=== PATIENT | female | born 1995 | race Caucasian/White ===

== ENCOUNTER 2017-03-22 06:39 | Inpatient (IN) | payer OTHER ==
[~2017-03-22] VITALS: Ht 157.5 cm; Wt 70.3 kg
[2017-03-22] MEDS ORDERED: Sodium Chloride LOK Flush 10 mL Syringe IVFLUSH PRN (08:00)
[2017-03-22] MEDS ORDERED: Carboprost 250 mCg/mL Inj IM PRN (08:00)
[2017-03-22] MEDS ORDERED: Methylergonovine 0.2 mg/mL Inj IM PRN (08:00)
[2017-03-22] MEDS ORDERED: Hemorrhage Kit, Post Partum XX ONE (08:00)
[2017-03-22] MEDS ORDERED: Oxytocin 30 Units/500 mL LR 30 UNITS in IV Premix 1 EACH IV PRN (08:00)
[2017-03-22] MEDS ORDERED: Oxytocin 10 Unit/mL Inj IM PRN (08:00)
[2017-03-22 09:20] LABS: Mean Corpuscular Hemoglobin 24.3 pg (27.0-35.0); Mean Corpuscular Volume 78.9 fL (81-100)
[2017-03-22] MEDS: Lactated Ringer's 1,000 ML IV PRN (21:03)
[2017-03-23 07:24] LABS: Mean Corpuscular Hemoglobin 24.5 pg (27.0-35.0); Mean Corpuscular Volume 79.5 fL (81-100)
--- NOTE | 2017-03-23 07:42 | PROG NOTE ---
[address] [address] PROGRESS NOTE PATIENT: VERENICE DESIR V : 1995 MR#: [id number] ADMIT: 03/22/2017 JOB ID: [id number] DATE: 03/23/2017 SUBJECTIVE: The patient was admitted yesterday with rupture of membranes at 39+ weeks gestation without active contractions. She wanted take a nonmedical approach and was observed over the course of most of the day yesterday. She also had some initial elevated blood pressures and had a CBC that was essentially normal. Creatinine of 0.53, uric acid 5.8, AST and ALT were normal, and a protein to creatinine ratio of 5.61. Over the course of the day, she did not really have much contractions. She was feeling okay and, in the evening, she was started on Pitocin per protocol. Overnight she says that her contractions were from about 2-4/10 in intensity. She had a mild headache that was treated with Tylenol and has gotten better. She is not currently having headache or visual changes. No abdominal pain. The contractions have completely gone away since the Pitocin was turned off a few hours ago after having reached 20 with no active contraction pattern. Vital signs have been in the 140 systolic overnight. EXAM: The patient is alert, nontoxic appearing. Abdomen is obviously gravid. Cervical exam is essentially unchanged at 4 cm, 70% effaced, very posterior moderate consistency. heart tones 140 with moderate variability and a few accelerations. No decelerations. Category 1 tracing. [place] shows no active contraction pattern. ASSESSMENT: 1. A 39 week, 1 para 0, now approximately 24 hours ruptured, at term. 2. The patient desires to avoid medicine. PLANS: We attempted to place a Carrizales bulb to see if we could to mechanical ripening due to the patient's desire to avoid medication. This was not able to be placed, and we will now do Cytotec for potentially a few doses and then repeat trial of Pitocin afterwards. We discussed the potential risks including chorioamnionitis and potential for a . I would like to recheck the PIH labs with some elevated blood pressures, but I am not immediately going to start medications for PIH due, in part, to the patient preference, but will need to monitor blood pressures closely.
[2017-03-23] MEDS: Misoprostol 25 mCg/0.25 Tablet VAGINAL SCH ×2 (08:28→13:25)
--- NOTE | 2017-03-23 20:42 | PROG NOTE ---
[address] [address] PROGRESS NOTE PATIENT: VERENICE DESIR V : 1995 MR#: [id number] ADMIT: 03/22/2017 JOB ID: [id number] DATE: SUBJECTIVE: The patient has been feeling well. She rates contractions about 1/10. Not currently having any fevers, chills. No headache. No other symptoms. OBJECTIVE: Vital signs are stable except for blood pressures which are noted to be in the 130-150 range systolic. No vaginal exam done at this time. heart tones 140 with moderate variability, some accelerations, no decelerations. ASSESSMENT: 1. Spontaneous rupture of membranes at term in a primiparous patient. 2. Elevated blood pressures. PLAN: We are going to continue the second dose of Cytotec which was recently placed. She has already tried and failed Pitocin one time. Plan to retry that again this evening after the second dose of Cytotec complete. Continue to monitor blood pressures.
[2017-03-24] MEDS ORDERED: fentaNYL 2 mCg/mL-Bupivicaine 0.125% 100 mL Premix EPIDURAL ONE (00:32)
[2017-03-24] MEDS ORDERED: Lactated Ringer's 500 ML IV ONE (00:37)
[2017-03-24] MEDS ORDERED: Lactated Ringer's 1,000 ML IV SCH (00:37)
--- NOTE | 2017-03-24 00:39 | PCM.HPANE ---
Patient Data Surgeon Admitting Provider:Aníbal Garrett MD Attending Provider:Aníbal Garrett MD Primary Care Physician:Aníbal Garrett MD Other Provider:Beka Francis Anesthesia Reason for Visit Term Labor TERM LABOR Ht/WT & BMI Body Mass Index Allergies Coded Allergies: No Known Allergies (Unverified , 03/22/17) Past Anesthesia History Anesthesia History: Denies:: Abnormal Airway, Anesthesia Reactions, Difficult Intubation, Fam Anesthesia Reaction, Fam Malignant Hypertherm, Malignant Hyperthermia Diabetes History Hx Diabetes?: No Medications Hypertension Medication: No Home Meds Incl Beta Ricardo: No History History of ENT Problems?: No HEENT History: Denies:: Abnormal Airway Cataracts Difficult Intubation Dysphagia Glaucoma Hearing Problem Sinus Problem TMJ Denture Type: None Teeth Condition: Within Normal Limits Hx of Heart Problems?: No Cardiovascular History: Denies:: AICD Abdominal Aortic Aneurism Atrial Fibrillation Cardiac Surgery Chest Pain Congestive Heart Failure Coronary Artery Disease Edema Heart Murmur Hypertension Irregular Heartbeat Pacemaker Peripheral Vascular Rheumatic Fever Thrombophlebitis Valvular Heart Disease Hx of Respiratory Problem?: No Respiratory History: Denies:: Asthma COPD Chest Surgery Cough Dyspnea Emphysema Hemoptysis Oxygen Administration Pneumonia Pulmonary Embolism Tuberculosis Use of C-PAP Machine Use of Inhalers / NEBS Hx Neurologic Problems?: No Hx of GI Problems?: Yes Gastrointestinal History: Positive for:: Heartburn Hx of Problems?: No Female Hx: Positive for:: Currently Hx Musculoskeletal Problems?: No Hx Surgeries?: No Smoking Status: Never Smoker Stop/Bang Treated for Sleep Apnea?: No Do You Have a CPAP Machine?: No SARAH Risk Assessment: Low Risk, <3 Yes Risk Assessment Category Category 1A: Patient has history of documented sleep apnea, and HAS NOT received any narcotic, sedative or anesthesia administration during this stay. Category 1B: Patient has history of documented sleep apnea, and HAS received any narcotic , sedative or anesthesia administration during this stay Category 2: Patient has SUSPECTED Obstructive Sleep Apnea, and HAS received any narcotic , sedative or anesthesia administration during this stay. Category 3: Patient has SUSPECTED Obstructive Sleep Apnea and HAS NOT received narcotic, sedative or anesthesia administration during this stay. Category 4: Outpatient in Procedural Areas with known sleep apnea or who screen positive for High Risk via the STOP/BANG questionnaire. Exam Exam General Appearance: Oriented X3 HEENT/AIRWAY: MP 2 Lungs: Normal Air Movement Heart: Regular Rate/Rhythm Meds/Labs/Diagnostics Admission Meds Current Medications Misoprostol (Cytotec) 25 mcg Q4H VAGINAL Last administered on 03/23/17t 13:25; Start 03/23/17 at 07:05 Labs Test 03/22/17 08:20 03/22/17 11:40 03/23/17 07:15 03/23/17 08:15 Hematology Comments Hold Urine Received (Received) White Blood Count 10.6th/mm3 (3.8-10.1) Red Blood Count 4.00mil/mm3 (3.90-5.20) Hemoglobin 9.8g/dL (12.0-15.6) Hematocrit 31.8% (35.0-46.0) Mean Corpuscular Volume 79.5fL (81-100) Mean Corpuscular Hemoglobin 24.5pg (27.0-35.0) Mean Corpuscular Hemoglobin Concent 30.8% (32.0-37.0) Red Cell Distribution Width 14.7% (12.3-15.4) Platelet Count 255bil/L (150-400) Blood Urea Nitrogen 7mg/dL (6-20) Creatinine 0.59mg/dL (0.57-1.00) Uric Acid 5.9mg/dL (2.6-7.2) Aspartate Amino Transf (AST/SGOT) 14U/L (0-50) Alanine Aminotransferase (ALT/SGPT) < 5U/L (0-32) Urine Random Creatinine 112mg/dL (16-392) Urine Random Total Protein 511mg/dL (0-15) Urine Protein/Creatinine Ratio 4.56 (0-200) Plan Impression Patient chart reviewed, patient interviewed and anesthestic plan with risks, benefits, and alternatives discussed, and informed consent obtained. ASA Physical Status: ASA2 Mod Systemic Disease Anesthetic Plan: Epidural Bene/Risks/Altern/Consents: Yes HP Complete Prior to Induction: Yes Tim Estrada MD Mar 24, 2017 00:39
[2017-03-24] MEDS ORDERED: fentaNYL 2 mCg/mL-Bupiv 0.125% 100 ML EPIDURAL SCH (00:40)
[2017-03-24] MEDS ORDERED: Phenylephrine/NS-PF 100 mCg/mL 5 mL Syringe IVPUSH PRN (00:40)
[2017-03-24] MEDS ORDERED: EPHEDrine Sulfate 50 mg/mL Inj IVPUSH PRN (00:40)
[2017-03-24] MEDS ORDERED: Atropine 1 mg/10 mL (Code) Syringe IVPUSH PRN (00:40)
[2017-03-24] MEDS ORDERED: Ondansetron 2 mg/mL 2 mL Inj IVPUSH PRN (00:40)
[2017-03-24] MEDS: Lactated Ringer's 1,000 ML IV PRN (02:07)
--- NOTE | 2017-03-24 02:32 | PROG NOTE ---
[address] [address] PROGRESS NOTE PATIENT: VERENICE DESIR V : 1995 MR#: [id number] ADMIT: 03/22/2017 JOB ID: [id number] DATE: SUBJECTIVE: Patient has been feeling better. She had an epidural placed and that seems to be generally working, maybe a little bit less on the left than on the right. She had requested that Pitocin be turned down prior to the epidural and so she is currently at 4 milliunits. The nurse had done a check and a second check by the charge nurse, and there was a question of a bulging bag. She had been admitted with vaginal bleeding and was thought to have been ruptured, and so she has been doing an induction over the last several days under that suspicion. PHYSICAL EXAMINATION: Blood pressures are still mildly elevated, see the electronic record. Cervix is about 6-7 cm, 90% effaced, -1 station with contractions. There is a clear amniotic bag which is ruptured with clear fluid. ASSESSMENT: This is a 21-year-old, G1, P0, admitted with rupture of membranes at 39 weeks, and had been thought to be about 42 hours status post rupture, but at this point I think there is a chance that we have effectively done an induction on her. She has had slow progress up to this point, but I am going to give her an hour or two to see if rupture of membranes improves her progress. Also, restart Pitocin augmentation and follow clinically.
--- NOTE | 2017-03-24 04:43 | PCM.PNOBIP ---
Subjective Date of Service Mar 24, 2017 Delivery plan: Spontaneous Vaginal Delivery Subjective No complaints. Pain Management: Epidural Labs Laboratory Tests 03/22/17 08:20: Hematology Comments 03/23/17 07:15: White Blood Count 10.6, Red Blood Count 4.00, Hemoglobin 9.8, Hematocrit 31.8, Mean Corpuscular Volume 79.5, Mean Corpuscular Hemoglobin 24.5, Mean Corpuscular Hemoglobin Concent 30.8, Red Cell Distribution Width 14.7, Platelet Count 255 Exam Vital Signs Vital Signs Contraction frequency in minutes: MVUs: Vital Signs: VS reviewed, concerns are (elevated BPs in the 140s.) Heart Tracings Heart Tones Baseline bpm Heart Rate Variability: Moderate Heart Rate Accelleration: Present Heart Rate Deceleration: Present (about half hour ago) Tocometry/IUPC Contraction frequency in minutes: MVUs: Sterile Vaginal Exam Cervical Dilation: 10 cms Station: +1 OB Intrapartum Assessment/Plan Intrapartum plan: Start expulsive efforts (complete, will try pushing, continue to monitor heart tones. ) Aníbal Garrett MD Mar 24, 2017 04:43
[2017-03-24] MEDS ORDERED: Sodium Chloride LOK Flush 10 mL Syringe IVFLUSH SCH (08:30)
--- NOTE | 2017-03-24 08:36 | PCM.PNOBIP ---
Subjective Date of Service Mar 24, 2017 Delivery plan: Spontaneous Vaginal Delivery Subjective Still feeling OK. Has taken a few breaks for laboring down in semi-fowlers in the past couple hours. No complaints. Pain Management: Epidural Labs Laboratory Tests 03/22/17 08:20: Hematology Comments 03/23/17 07:15: White Blood Count 10.6, Red Blood Count 4.00, Hemoglobin 9.8, Hematocrit 31.8, Mean Corpuscular Volume 79.5, Mean Corpuscular Hemoglobin 24.5, Mean Corpuscular Hemoglobin Concent 30.8, Red Cell Distribution Width 14.7, Platelet Count 255 Exam Vital Signs Vital Signs Contraction frequency in minutes: MVUs: Vital Signs: VS reviewed, stable Heart Tracings Heart Tones Baseline bpm Heart Rate Variability: Moderate Heart Rate Accelleration: Present Heart Rate Deceleration: Present (to 90s with contractions, returns to 120 baseline) Tocometry/IUPC Contraction frequency in minutes: MVUs: Sterile Vaginal Exam Cervical Dilation: 10 cms Station: +1 OB Intrapartum Assessment/Plan Intrapartum plan: Continue expected management (Has been on/off pitocin, has pushed on alternate contractions, also pushed regularly and several laboring down breaks. Although ~4 hours since initial expulsive efforts, mother still seems to be pushing well and more recently progressing. ) Aníbal Garrett MD Mar 24, 2017 08:36
[2017-03-24] MEDS ORDERED: HYDROcodone-APAP 5-325 mg Tablet PO PRN (11:20)
[2017-03-24] MEDS ORDERED: LANOlin HPA 7 Gm Ointment TOPICAL PRN (11:20)
[2017-03-24] MEDS ORDERED: Witch Hazel-Glycerin Pads TOPICAL PRN (11:20)
[2017-03-24] MEDS ORDERED: Oxytocin 30 Units/500 mL LR 30 UNITS in IV Premix 1 EACH IV PRN (11:20)
[2017-03-24] MEDS ORDERED: Benzocaine (Dermoplast) 20% 60 Gm Spray TOPICAL PRN (11:20)
[2017-03-24] MEDS ORDERED: Oxytocin 10 Unit/mL Inj IM PRN (11:20)
[2017-03-24] MEDS ORDERED: Methylergonovine 0.2 mg/mL Inj IM PRN (11:20)
[2017-03-24] MEDS ORDERED: Hemorrhage Kit, Post Partum XX ONE (11:20)
[2017-03-24] MEDS ORDERED: Carboprost 250 mCg/mL Inj IM PRN (11:20)
--- NOTE | 2017-03-24 11:50 | OP ---
[address] [address] OPERATIVE REPORT PATIENT: VERENICE DESIR V : 1995 MR#: [id number] ADMIT: 03/22/2017 JOB ID: [id number] DATE OF SURGERY: 03/24/2017 PREOPERATIVE DIAGNOSIS(ES): POSTOPERATIVE DIAGNOSIS(ES): PROCEDURE: Normal spontaneous vaginal delivery over a second-degree perineal laceration. SURGEON: Aníbal Garrett MD ANESTHESIA: Epidural anesthesia. ESTIMATED BLOOD LOSS: 300 cc. APGARS: Were 3 and 8 at one and five minutes, respectively, with a brief positive pressure ventilation for a few breaths at . LACERATIONS: There is a second-degree perineal laceration repaired with 3-0 Vicryl without complication. No episiotomy was performed. UTERUS: Spontaneous delivery of the placenta, no manual exploration of the uterus. DESCRIPTION OF PROCEDURE: The patient is a 21-year-old, , who was admitted about 52 hours ago with thought of rupture of membranes from the ROM plus test. She was monitored initially for approximately 12 hours and then was augmented with Pitocin over the 1st night with no interval cervical change. She had Cytotec for two doses on the 2nd day, with some interval change and then Pitocin augmentation with arrest of dilation at approximately 6-7 cm. At that time, amniotic fluid bag was intact and ruptured, and she progressed over the next several hours. She started 2nd stage of labor at approximately 4:45, and then pushed for a little over an hour. She subsequently took several breaks and alternated between pushing and laboring down for the next several hours. I was with the patient from approximately 9:30 continuously until delivery. During delivery, there were decelerations with contractions that would return to baseline. There were accelerations and moderate variability. In the final contractions, the head was on the perineum for a relatively prolonged time. Cord was too tight to reduce and was around the neck. It was cross cut and the body was then delivered. The baby was briefly placed on the mother's abdomen before transferring to the warmer for resuscitation. About 2-3 minutes later, the baby was active and doing well. Mother had the laceration repaired without difficulty. Counts were confirmed and correct, and currently she and the baby are doing well in recovery. BERYL
[2017-03-24] MEDS ORDERED: Lidocaine 2% 5 mL Urojet Topical Jelly Syringe ONE (14:42)
[2017-03-24] MEDS: Lactated Ringer's 1,000 ML IV SCH ×2 (14:57→20:57)
[2017-03-24 16:09] LABS: Mean Corpuscular Hemoglobin 24.2 pg (27.0-35.0); Mean Corpuscular Volume 80.8 fL (81-100)
[2017-03-25 00:47] LABS: Mean Corpuscular Hemoglobin 25.3 pg (27.0-35.0); Mean Corpuscular Volume 80.9 fL (81-100)
--- NOTE | 2017-03-25 01:28 | PCM.ANEP1 ---
Post Anesthesia PACU Phase 1 Assessment Anesthetic Administered: Epidural Level of Alertness: Awake, talking BAIN's with Equal Strength: Yes Pain: No Pain Scale Score: 4 Nausea or Vomiting: No CV Function & Hydration Stable: No Airway Device: Oxygen Delivery: Room Air Lungs: Clear to Auscultation Dermatome Level: Full Sensation PACU Phase 2 Assessment Complications: No Follow up Care: N/A Patient Instructions Provided: N/A Oren Combs MD Mar 25, 2017 01:28
[2017-03-25] MEDS ORDERED: 0.9% Sodium Chloride 0 ML ONE (01:32)
[2017-03-25] MEDS ORDERED: diphenhydrAMINE 25 mg Capsule PO ONE (02:20)
--- NOTE | 2017-03-25 02:48 | PROG NOTE ---
[address] [address] PROGRESS NOTE PATIENT: VERENICE DESIR V : 1995 MR#: [id number] ADMIT: 03/22/2017 JOB ID: [id number] DATE: SUBJECTIVE: The patient is feeling tired and she has been feeling lightheaded and has need to use a wheelchair to get back from the bathroom. She has been having episodic amounts of blood loss, at about 500 or 600 cc of blood loss in the early afternoon. At that point, she had a hematocrit that was 24 compared to a pre delivery hematocrit of 31.8. She seemed to not be having further bleeding, but over the course of the next 8 hours, she had a few more episodes of some clotting and uncertainty about total amount. She had repeat blood draw about two hours ago that showed a white blood cell count of 23.1, a hemoglobin of 6.1 and a hematocrit of 19.5 with a platelet count of 248. She and her have a number of questions about pros and cons of blood transfusion which was discussed in depth for approximately 20 minutes. OBJECTIVE: The patient has been tachycardic with heart rates in the 110s, blood pressures have still been in the normal range. The patient is alert. She is pale, but otherwise nontoxic-appearing. Normal psych exam. ASSESSMENT: A G-1, now P-1 status post normal vaginal delivery, with a very prolonged second stage of labor with some resting periods, but a total time of six hours, who is now having intermittent hemorrhages. She may still be actively bleeding. We discussed this as a complication of her prolonged second stage of labor. I am recommending two units of blood. We had a long, careful discussion of risks including fever and chills, allergic reaction and a small non-zero risk of transmission of infectious disease such as hepatitis. I think benefits of transfusion outweigh the risks and I am not recommending any other approach at this point. They are agreeable after discussion. We will transfuse 2 units and check a post transfusion hematocrit. I will not be discharging the patient today so that we can continue to monitor. At this point, I do not feel that she actively needs other hemorrhage treatment or that she is immediately at risk for hysterectomy, but we need to monitor blood loss until it has started to stabilize. MTDD
[2017-03-25] MEDS: Lactated Ringer's 1,000 ML IV SCH ×3 (03:18→19:18)
[2017-03-25] MEDS ORDERED: 0.9% Sodium Chloride 250 ML ONE (04:15)
[2017-03-25 08:50] LABS: Mean Corpuscular Hemoglobin 26.5 pg (27.0-35.0)
--- NOTE | 2017-03-25 18:13 | PROG NOTE ---
[address] [address] PROGRESS NOTE PATIENT: VERENICE DESIR V : 1995 MR#: [id number] ADMIT: 03/22/2017 JOB ID: [id number] DATE: 03/25/2017 SUBJECTIVE: Patient is still feeling fatigued but is not feeling lightheaded or racing heart. She has not yet gotten up to walk but has been in the bathroom just a few minutes. She had a Carrizales catheter pulled out a couple of hours ago. She does not feel that she is having any heavy lochia but she has not really been checking. She has still been having a lot of swelling on the labia but feels that maybe swelling there and on her legs is better than it was this morning. No shortness of breath. No new complaints. She had RhoGAM during but earlier today there were issues with her agreeing with RhoGAM. She has not had RhoGAM yet today. PHYSICAL EXAMINATION: The patient has more pink in her cheeks and looks better than she did earlier this morning. Legs have bilateral symmetric swelling that seems relatively unchanged. There is no pelvic exam at this point right now. ASSESSMENT: 1. A 21-year-old with some elevated blood pressures and hemorrhage. Now status post 2 units of blood with a hematocrit this morning of 25. 2. Rh negative status . PLAN: 1. Recheck hematocrit tomorrow morning at five. She is not actively having any signs of heavy bleeding and, assuming hematocrit stable and signs of anemia are stable, could probably discharge home tomorrow. 2. Discussion of the role of RhoGAM and preventing hydrops. The patient after discussion is agreeable with doing RhoGAM. She would like to do it tomorrow after she has had a chance to talk but promises that she will do it.
[2017-03-26] MEDS: Lactated Ringer's 1,000 ML IV SCH ×2 (03:18→11:18)
[2017-03-26 06:54] LABS: Mean Corpuscular Hemoglobin 26.4 pg (27.0-35.0); Mean Corpuscular Volume 83.1 fL (81-100)
--- NOTE | 2017-03-26 08:02 | PCM.DC.OB ---
Obstetrical Discharge Summary Date of Service Mar 26, 2017 Date of hospital admission Mar 22, 2017 at 07:47 Date of Discharge: Mar 26, 2017 Providers Admitting Physician: Aníbal Garrett MD Primary Care Physician: Aníbal Garrett MD Attending Physician: Aníbal Garrett MD Problems: (1) Qualifiers: Weeks of gestation: 39 weeks Qualified Code: Z3A.39 - 39 weeks gestation of Plan: status post normal spontaneous vaginal delivery. Status: Resolved ICD Code: Z33.1 (2) hemorrhage, delivered Plan: prolonged second stage of labor, hemorrhage with hematocrit dropping to 19, 2 units of blood transfused, hematocrit stable for more than 20 hours at 25. Now asymptomatic. Status: Acute ICD Code: O72.1 (3) induced hypertension, antepartum Plan: this was monitored, most recent blood pressure of 130 systolic. Patient did not want medical managment. Status: Acute ICD Code: O13.9 (4) Rh negative status during Plan: patient agreed to do RhoGAM but initially there was refusal. Status: Acute ICD Code: O09.899 Invasive procedures normal spontaneous vaginal delivery over a second-degree perineal laceration Date of Procedure: Mar 24, 2017 Brief History and Physical: patient was admitted at 39 weeks with some mild vaginal bleeding and suspicion for rupture of membrane based on ROM plus testing. Her care was generally unremarkable except for refusal of immunizations. Past medical history and surgical history unremarkable. Exam on admission showed cervical dilation of 3 cm. labs were reassuring except for Rh- status. Hospital Course: Patient was admitted and initially monitored because she refused to do Pitocin augmentation. After approximately 12 hours of monitoring without signs of spontaneous labor she was started on Pitocin and this was increased per protocol over the course of the night. There was no cervical changes and dilation hovered around 4 cm. The patient had 2 doses of Cytotec with cervical change to 5 cm and then Pitocin was restarted. Amniotic sac was discovered to be intact was ruptured with clear fluids. Patient progressed normally through the remainder of the first stage of labor. She had a prolonged second stage of labor, initially with ineffective pushing. She had several sessions of laboring down. Total start to finish time of 6 hours. Steady progress in the last hour. There was reassuring monitoring during labor and second stage of labor, the head stayed on the perineum and was delivered slowly and initial Apgars were 3 and then 8. At one and 5 minutes. After delivery she had usual Pitocin but had significant vaginal bleeding as an episode. No continuous bleeding. Hematocrit dropped to 24, she had several other episodes and began to feel lightheaded and have tachycardia. Hematocrit had dropped to 19. She and her significant other and initially refused blood transfusion but after discussion agreed to 2 units of transfusion. Post transfusion hematocrit of 25. On the day discharge hematocrit is unchanged. Uncertain about contraception. She is breast-feeding, there was some initial difficulties. She had done RhoGAM during but initially she and her significant other refused to do RhoGAM. After discussion she has agreed to do it. She wanted to defer it until today Discharge Medications: home ibuprofen and vitamins. Discharge Diet: No restrictions Discharge Activity-General: Pelvic Rest for 6 weeks, Pelvic Rest, Try not to overdue, Be up and about, Balance rest and activity, Activity as pain allows, Activity as energy allows Aníbal Garrett MD Mar 26, 2017 08:00
--- NOTE | 2017-03-26 08:06 | PCM.DIOB ---
Obstetrical Disch Instruction Dates of Hospitalization Date of Hospital Admission Mar 22, 2017 at 07:47 Providers Admitting Physician: Aníbal Garrett MD Primary Care Physician: Aníbal Garrett MD Attending Physician: Aníbal Garrett MD Discharge Diagnosis Problems: (1) Qualifiers: Weeks of gestation: 39 weeks Qualified Code: Z3A.39 - 39 weeks gestation of Status: Resolved ICD Code: Z33.1 (2) hemorrhage, delivered Status: Acute ICD Code: O72.1 (3) induced hypertension, antepartum Status: Acute ICD Code: O13.9 (4) Rh negative status during Status: Acute ICD Code: O09.899 Diet Discharge Diet: No restrictions Activity Discharge Activity-General: Pelvic Rest for 6 weeks, Try not to overdue, Be up and about, Balance rest and activity, Activity as pain allows, Activity as energy allows Dressing and Incisional Care Hygiene: May shower, Dermoplast spray Follow Up Plan Follow-up appointment: Weeks (6) Call your provider for: Fever or Chills, Shortness of breath, Heavy vaginal bleeding, Heavy bleeding, Epigastric pain, Excessive constipation, Vaginal discomfort, Red painful breasts Aníbal Garrett MD Mar 26, 2017 08:06
--- NOTE | 2017-03-26 10:28 | NUR ---
received SW referral. LVM for [employer].
--- NOTE | 2017-03-26 11:17 | NUR ---
Social Work Note D/A: SPORTS PHOTOGRAPHER consult was ordered due to family concerns regarding [facility]OB's refusal of medical treatment for BB. SPORTS PHOTOGRAPHER spoke with credit associate Krystal who indicated that FBC MD requested consultation because the lack of treatment that was refused by [facility] and Pt places BB at substantial risk. P: SPORTS PHOTOGRAPHER is currently finishing up another case in the ED. SPORTS PHOTOGRAPHER conferred with credit associate Liz and the decision was made that SPORTS PHOTOGRAPHER would meet with Pt and FOB once that case was resolved, approximately 45 minutes from now. CAMRYN Jimenez, AAC
[2017-03-26 12:39] VITALS: BP 138/81; PULSE 94; RESP 18
--- NOTE | 2017-03-26 15:07 | NUR ---
Social Work Note: Initial Assessment D/A: Pt is a 21 year old female who gave to BB on 03/24/2017. Pt and FOB, Khang Ellis, declined vitamin K injection for BB. Various RN and MD staff explained the importance of the injection to guard against brain bleeds and BB's high risk status for such a complication. Pt and FOB refused each time. SHEEP STICKER spoke with Pt regarding the importance of the Vitamin K injection and Pt explained that she and FOB had purchased vitamin K drops that they planned to administer to BB orally upon discharge home. Pt explained that she and FOB had decided to decline the injection after speaking with several friends and family who told them that it wasn't worth it. Pt reported that she currently lives with FOB in [facility] and plans to return to this home upon discharge. Pt indicated that she has everything that she will need to properly care for BB at home including a crib and a car seat. Pt explained that she is not enrolled in any social service technician because she doesn't qualify due to income. Pt denied any history of DV, CD or mental illness and reported no current legal concerns. Pt indicated that she has a strong network of social supports made up of friends and family that live nearby. Pt reported that she has spoken with her PCP regarding post depression and has a plan to manage it if it should arise. Pt identified no additional needs prior to discharge. P: RN and MD staff reported concerns regarding Pt's refusal to allow the vitamin K injection. RN and MD staff reported that Pt and family have been otherwise appropriate and affectionate with BB throughout their stay in the hospital. [facility] [place] indicated that she did not feel that CPS would need to be notified and was somewhat relieved to find out that Pt and FOB had oral vitamin K that they planned to administer to BB. SHEEP STICKER provided Pt and FOB with some informational materials regarding the importance and risks associated with vitamin K deficiency in newborns and Pt thanked SHEEP STICKER for the information. Pt to be discharged once medically clear by [facility] . Margarita Bean, CAMRYN, AAC
== END 2017-03-26 13:26 | disposition home or self-care (01) | DRG 774 ==
LOC: FBCO 06:39 → FBC 07:47
PROVIDERS: ADMIT Family Medicine; ATTEND Family Medicine
PROC: 0U7C7ZZ Dilation of Cervix, Via Natural or Artificial Opening (ICD-10-PCS; 2017-03-23)
PROC: 3E0P7GC Introduction of Other Therapeutic Substance into Female Reproductive, Via Natural or Artificial Opening (ICD-10-PCS; 2017-03-23)
PROC: 10E0XZZ Delivery of Products of Conception, External Approach (ICD-10-PCS; principal; 2017-03-24)
PROC: 0KQM0ZZ Repair Perineum Muscle, Open Approach (ICD-10-PCS; 2017-03-24)
PROC: 10907ZC Drainage of Amniotic Fluid, Therapeutic from Products of Conception, Via Natural or Artificial Opening (ICD-10-PCS; 2017-03-24)
PROC: 30233N1 Transfusion of Nonautologous Red Blood Cells into Peripheral Vein, Percutaneous Approach (ICD-10-PCS; 2017-03-25)
DX: O70.1 Second degree perineal laceration during delivery (principal); O72.1 Other immediate postpartum hemorrhage; Z37.0 Single live birth; O13.3 Gestational [pregnancy-induced] hypertension without significant proteinuria, third trimester; O36.0930 Maternal care for other rhesus isoimmunization, third trimester, not applicable or unspecified; Z3A.39 39 weeks gestation of pregnancy; O69.1XX0 Labor and delivery complicated by cord around neck, with compression, not applicable or unspecified